=== PATIENT | male | born 1955 | race Caucasian/White ===

== ENCOUNTER 2017-07-13 13:39 | Emergency (ER) | payer MEDICARE, MEDICAID ==
[2017-07-13 14:09] VITALS: BP 100/62
--- NOTE | 2017-07-13 14:40 | UC ---
Respiratory Complaint HPI - HPI Summary HPI Summary: Started coughing 2 days ago. A little worse today. No fever or headache - History of Current Complaint Chief Complaint: UCRespiratory Stated Complaint: COUGH CONGESTION Time Seen by Provider: 07/13/17 14:33 Hx Obtained From: Patient, Family/Packaging Sales Representative Onset/Duration: Sudden Onset, Lasting Days - 2, Still Present Timing: Constant Severity Initially: Mild Severity Currently: Moderate Pain Intensity: 4 Character: Cough: Productive Aggravating Factors: Nothing Alleviating Factors: Nothing Associated Signs And Symptoms: Positive: Nasal Congestion, Hoarseness. Negative : Dyspnea, Fever, Chills, Wheezing - Allergies/Home Medications Allergies/Adverse Reactions: Allergies Allergy/AdvReac Type Severity Reaction Status Date / Time PLASTIC BANDAIDS Allergy Intermediate Unknown Uncoded 11/16/13 10:35 Reaction Details PMH/Surg Hx/FS Hx/Imm Hx Psychological History: Schizophrenia - Surgical History Surgical History: Yes Surgery Procedure, Year, and Place: COLONOSCOPY, WITH BENIGN POLOPS - Family History Known Family History: Positive: Unknown, Other - pt unable to provide family PMH - Social History Occupation: Disabled Lives: Half-Way Alcohol Use: None Substance Use Type: None Smoking Status (MU): Never Smoked Tobacco - Immunization History Most Recent Tetanus Shot: 03/20/06 Review of Systems ENT: Nasal Discharge Respiratory: Cough Is Patient Immunocompromised?: No All Other Systems Reviewed And Are Negative: Yes Physical Exam Triage Information Reviewed: Yes Appearance: Well-Appearing, No Pain Distress, Well-Nourished Vital Signs: Initial Vital Signs Temp 98.2 F 07/13/17 14:00 Pulse 86 07/13/17 14:00 Resp 20 07/13/17 14:00 BP 100/62 07/13/17 14:00 Pulse Ox 99 07/13/17 14:00 Vital Signs Reviewed: Yes Eyes: Positive: Conjunctiva Clear ENT: Positive: Pharynx normal, TMs normal Neck exam: Normal Respiratory Exam: Normal Cardiovascular Exam: Normal Musculoskeletal Exam: Normal Neurological Exam: Normal Psychological Exam: Normal Skin Exam: Normal UC Diagnostic Evaluation - Laboratory O2 Sat by Pulse Oximetry: 99 Respiratory Course/Dx - Differential Dx/Diagnosis Differential Diagnosis/HQI/PQRI: Asthma, Bronchitis, Lower Resp Infection, Sinusitis Provider Diagnoses: Acute URI Discharge - Discharge Plan Condition: Stable Disposition: HOME Patient Education Materials: Upper Respiratory Infection (ED), Cold Symptoms ( ED) Referrals: Digiovanna,William J, MD [Primary Care Provider] -
== END 2017-07-13 14:56 | disposition home or self-care (01) ==
LOC: UCCORT 13:39
DX: J06.9 Acute upper respiratory infection, unspecified (principal)
CPT/HCPCS: 99212; G0463

== ENCOUNTER 2018-08-17 10:01 | Emergency (ER) | payer MEDICARE, MEDICAID ==
[2018-08-17 11:30] VITALS: BP 105/62
--- NOTE | 2018-08-17 12:18 | UC ---
Throat Pain/Nasal Stone HPI - HPI Summary HPI Summary: 63-year-old male comes in with a chief complaint of one week of upper respiratory tract infection symptoms. He has been on Sudafed and Tessalon Perles. The cough chest congestion are getting worse. No fevers measured. Patient does have some developmental delays and also psychiatric history and obtaining a full history from him is limited. Overall by the caregiver the patient's behavior has been normal. Not in any acute respiratory distress except when coughing. - History of Current Complaint Chief Complaint: UCRespiratory Stated Complaint: COLD SX'S Time Seen by Provider: 08/17/18 12:00 Pain Intensity: 0 - Allergies/Home Medications Allergies/Adverse Reactions: Allergies Allergy/AdvReac Type Severity Reaction Status Date / Time PLASTIC BANDAIDS Allergy Intermediate Unknown Uncoded 08/17/18 11:31 Reaction Details PMH/Surg Hx/FS Hx/Imm Hx Previously Healthy: Yes - Surgical History Surgical History: Yes Surgery Procedure, Year, and Place: COLONOSCOPY, WITH BENIGN POLOPS - Family History Known Family History: Positive: Unknown, Other - pt unable to provide family PMH - Social History Alcohol Use: None Substance Use Type: None Smoking Status (MU): Never Smoked Tobacco Have You Smoked in the Last Year: No - Immunization History Most Recent Tetanus Shot: 03/20/06 Vaccination Up to Date: Yes Review of Systems All Other Systems Reviewed And Are Negative: Yes Constitutional: Positive: Negative Skin: Positive: Negative Eyes: Positive: Negative ENT: Positive: Nasal Discharge, Sinus Congestion Respiratory: Positive: Cough, Other - see hpi Cardiovascular: Positive: Negative Gastrointestinal: Positive: Negative Motor: Positive: Negative Neurovascular: Positive: Negative Musculoskeletal: Positive: Negative Neurological: Positive: Negative Psychological: Positive: Negative Is Patient Immunocompromised?: No Physical Exam Triage Information Reviewed: Yes Appearance: No Pain Distress, Well-Nourished, Ill-Appearing - mild Vital Signs: Initial Vital Signs Temp 97.4 F 08/17/18 11:27 Pulse 78 08/17/18 11:27 Resp 17 08/17/18 11:27 BP 105/62 08/17/18 11:27 Pulse Ox 100 08/17/18 11:27 Vital Signs Reviewed: Yes Eye Exam: Normal Eyes: Positive: Conjunctiva Clear ENT: Positive: Pharyngeal erythema, Nasal congestion, Nasal drainage, TMs normal Neck: Positive: Supple Respiratory: Positive: Lungs clear, Normal breath sounds, No respiratory distress Cardiovascular: Positive: RRR Musculoskeletal Exam: Normal Musculoskeletal: Positive: Strength Intact, ROM Intact Neurological Exam: Normal Neurological: Positive: Alert, Muscle Tone Normal Psychological Exam: Normal Psychological: Positive: Age Appropriate Behavior Skin Exam: Normal Throat Pain/Nasal Course/Dx - Course Course Of Treatment: Starting ABx due to worsening Sx. Stop tessalon and start Tussin DM. F/U PMD if not improved. Eval in ED if worse. - Differential Dx/Diagnosis Provider Diagnosis: Bronchitis Discharge - Sign-Out/Discharge Documenting (check all that apply): Patient Departure All imaging exams completed and their final reports reviewed: No Studies - Discharge Plan Condition: Stable Disposition: HOME Prescriptions: Azithromyxin YVAN (NF) [Z-Yvan (Zithromax) 250 mg tabs #6] 2 tab PO .TODAY, THEN 1 DAILY #6 tab Patient Education Materials: Acute Bronchitis (ED) Referrals: William Berman MD [Primary Care Provider] - Additional Instructions: FOLLOW UP WITH YOUR DOCTOR IF NOT COMPLETELY IMPROVED. GET REEVALUATED SOONER FOR WORSENING OF YOUR CONDITION OR QUESTIONS OR CONCERNS. - Billing Disposition and Condition Condition: STABLE Disposition: Home
== END 2018-08-17 12:23 | disposition home or self-care (01) ==
LOC: UCCORT 10:01
DX: J20.9 Acute bronchitis, unspecified (principal); Z88.9 Allergy status to unspecified drugs, medicaments and biological substances
CPT/HCPCS: 99212; G0463

== ENCOUNTER 2018-10-09 10:39 | Day surgery (SDC) | payer MEDICARE, MEDICAID ==
[~2018-10-09 10:39] MED LIST: Buffered Lidocaine 1% SYRIN* 1 ML/SYRINGE INTRADERM ONE; Bupivacaine 0.25% SDV PF* 10 ML VIAL INJ ONE; Dexamethasone IV* 4 MG/ML 1 ML (4 MG) ONE; Lactated Ringers 1000 ML Bag* 1,000 ML IV SCH; Lidocaine 1% INJ* 10 MG/ML 30 ML SDV ONE
[2018-10-09] MEDS ORDERED: ceFAZolin 2 GM PREMIX in ORs 2 GM/50 ML BAG ONE (11:03)
[2018-10-09] MEDS ORDERED: KETAMINE HCL* 50 MG/ML 10 ML VIAL ONE (11:45)
[2018-10-09] MEDS ORDERED: Midazolam* 1 MG/ML 5 ML VIAL (5 MG) ONE (11:45)
[2018-10-09] MEDS ORDERED: fentaNYL* 50 MCG/ML 2 ML VIAL (100 MCG VIAL) ONE (11:45)
[2018-10-09] MEDS ORDERED: Dexamethasone IV* 4 MG/ML 1 ML (4 MG) ONE (12:35)
[2018-10-09] MEDS ORDERED: Propofol* 500 MG/50 ML BTL ONE (13:05)
[2018-10-09 14:06] VITALS: BP 119/85
--- NOTE | 2018-10-09 16:07 | OP ---
DATE OF OPERATION: 10/09/18 - [facility] DATE OF : 57 SURGEON: Michelet Contreras DPM ANESTHESIA: MAC local. 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 OPERATIVE PROCEDURE: Removal of the left third metatarsal head. ESTIMATED BLOOD LOSS: Less than 10 cc. IV FLUIDS: LR 1000 cc. DRAINS: None. SPECIMENS: Bone of the left third metatarsal head. DESCRIPTION OF PROCEDURE: The patient was taken to the operating room and was placed in the supine position. Time-out was called and OR team agreed. The left foot was then blocked with 10 cc of 1% lidocaine plain in a Castaneda block fashion at the base of the left third metatarsal. The foot was then prepped and draped in a sterile manner. The left foot was exsanguinated with an Esmarch bandage and the cuff was then inflated to 250 mmHg. Attention was then paid to the dorsal aspect of the third metatarsophalangeal joint. I made a linear incision with a #15 blade. This was followed by sharp and blunt dissection from the dermis, epidermis, subcutaneous tissue down to the deep fascia. All bleeders and neurovascular structures were retracted from the site. Once I got down to the fascia, I was able to incise the capsule of the third metatarsophalangeal joint to reveal the head of the left third metatarsal. I went ahead and released the lateral collateral ligaments as well as the standard attachments to the plantar plate. I went ahead and used a sagittal saw to cut the left third metatarsal head at the level of the neck. The head was removed from the operative site and inspected and found to be arthritic in nature. The site was then irrigated and inspected and was then deemed completed. I went ahead and closed the wound in a layered anatomical fashion. Deeper layers were closed with 3-0 Vicryl ,and the skin was closed in interrupted fashion with a 4-0 nylon. I injected the site with 3 cc of 0.25% Marcaine plain as well as 8 mg with 2 cc of dexamethasone phosphate. The foot was then placed in a dry sterile dressing. The cuff was deflated and the patient was later transferred to Recovery in stable condition. The patient tolerated the procedure well and was later discharged in stable condition as well. I will go ahead and follow up with him in the office in 3 days. [id number]/[facility] #: [id number] MARY
== END 2018-10-09 14:32 | disposition home or self-care (01) ==
LOC: OR 10:39
PROVIDERS: ATTEND Podiatrist
DX: M21.6X2 Other acquired deformities of left foot (principal)
CPT/HCPCS: J0690; J1100; J2250; J2704; J3010; J3490

== ENCOUNTER 2019-01-04 14:19 | Emergency (ER) | payer MEDICARE, OTHER, MEDICAID ==
[2019-01-04 14:59] VITALS: BP 117/66
--- NOTE | 2019-01-04 15:25 | UC ---
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 states non productive cough and nasal congestion since 12/24/18 - History of Current Complaint Chief Complaint: UCRespiratory Stated Complaint: COUGH,CONGESTION Time Seen by Provider: 01/04/19 15:13 Hx Obtained From: Patient, Family/Hospitality Intern Onset/Duration: Sudden Onset, Lasting Weeks Severity: Mild Pain Intensity: 0 Associated Signs & Symptoms: Positive: Dysphagia, Sinus Discomfort, Nasal Discharge - Allergies/Home Medications Allergies/Adverse Reactions: Allergies Allergy/AdvReac Type Severity Reaction Status Date / Time PLASTIC BANDAIDS Allergy Intermediate Unknown Uncoded 10/09/18 11:09 Reaction Details PMH/Surg Hx/FS Hx/Imm Hx Previously Healthy: Yes - Surgical History Surgical History: Yes Surgery Procedure, Year, and Place: COLONOSCOPY, WITH BENIGN POLOPS. foot surgery 11/2018 - Family History Known Family History: Positive: Unknown, Other - pt unable to provide family PMH - Social History Alcohol Use: None Substance Use Type: None Smoking Status (MU): Never Smoked Tobacco Have You Smoked in the Last Year: No - Immunization History Most Recent Tetanus Shot: 03/20/06 Vaccination Up to Date: Yes Review of Systems All Other Systems Reviewed And Are Negative: Yes ENT: Positive: Sore Throat, Ear Ache, Nasal Discharge, Sinus Congestion Respiratory: Positive: Cough Neurological: Positive: Headache Is Patient Immunocompromised?: No Physical Exam Triage Information Reviewed: Yes Appearance: No Pain Distress, Well-Nourished, Ill-Appearing Vital Signs: Initial Vital Signs Temp 98.7 F 01/04/19 14:56 Pulse 77 01/04/19 14:56 Resp 16 01/04/19 14:56 BP 117/66 01/04/19 14:56 Pulse Ox 98 01/04/19 14:56 Vital Signs Reviewed: Yes Eye Exam: Normal ENT: Positive: Pharyngeal erythema - with pnd, Nasal congestion, Nasal drainage , TM bulging, TM red, Dental tenderness, Sinus tenderness Dental Exam: Normal Neck exam: Normal Respiratory Exam: Normal Cardiovascular Exam: Normal Cardiovascular: Positive: RRR, No Murmur, Pulses Normal Abdominal Exam: Normal Abdomen Description: Positive: Nontender, No Organomegaly, Soft Bowel Sounds: Positive: Present Musculoskeletal Exam: Normal Neurological Exam: Normal Psychological Exam: Normal Psychological: Positive: Decreased Age Appropriate Behavior - due to intellectual disabilities but communicates concerns Skin Exam: Normal Throat Pain/Nasal Course/Dx - Course Course Of Treatment: hx obtained, exam performed ,meds reviewed, treated for sinusitis - Differential Dx/Diagnosis Differential Diagnosis/HQI/PQRI: Influenza, Otitis Media, Pharyngitis, Sinusitis , URI Provider Diagnosis: Sinusitis Discharge ED - Sign-Out/Discharge Documenting (check all that apply): Patient Departure All imaging exams completed and their final reports reviewed: No Studies - Discharge Plan Condition: Stable Disposition: HOME Prescriptions: Amoxicillin PO (*) [Amoxicillin 875 MG (*)] 875 mg PO BID #20 tab Patient Education Materials: Sinusitis (ED) Referrals: William Berman MD [Primary Care Provider] - Additional Instructions: 1. take the medication as prescribed. 2. Increase fluids and get rest - Billing Disposition and Condition Condition: STABLE Disposition: Home
== END 2019-01-04 15:34 | disposition home or self-care (01) ==
LOC: UCCORT 14:19
DX: J32.9 Chronic sinusitis, unspecified (principal)
CPT/HCPCS: 99212; G0463